=== PATIENT | female | born 1965 | race Caucasian/White ===

== ENCOUNTER 2016-12-17 16:14 | Emergency (ER) | payer MEDICARE, OTHER ==
[~2016-12-17] VITALS: Ht 157.5 cm; Wt 72.7 kg
[2016-12-17 16:21] VITALS: BP 147/96; PULSE 88; RESP 16; O2SAT 99
--- NOTE | 2016-12-17 17:38 | DRSVH ---
PROCEDURE: X-RAY CHEST ONE VIEW, PORTABLE ([id number]) INDICATIONS: CHEST PAIN TECHNIQUE: One view of the chest was acquired. COMPARISON: None. FINDINGS: Surgical changes and devices: None. Lungs and pleura: No pleural effusions or pneumothorax. Lungs are clear. Mediastinum: Mediastinal contours appear normal. Heart size is normal. Bones and chest wall: No suspicious bony lesions. Overlying soft tissues appear unremarkable. IMPRESSION: 1. No acute cardiopulmonary disease. Dictated by: Fausto Buck M.D. on 12/17/2016 at 17:36 Approved by: Fausto Buck M.D. on 12/17/2016 at 17:36
--- NOTE | 2016-12-17 17:51 | ED.REPORT ---
HPI-General Illness Date of Service Dec 17, 2016 ED Provider: Rosana Patterson MD The pt is a 51 y/o female w/ a hx of fibromyalgia presenting to the ED complaining of lower extremity bruising onset 5 days ago. She reports the bruising gradually going up her legs. She also has intermittent stabbing L sided chest pain which she describes as "stabbing through her front and back at the same time". The pt also has a headache, epigastric abd tenderness, and a small amount of hematuria. She has taken half a Vicodin and 3 Advil for the pain. Denies any blood in her stool or vomit. The pt also denies any alcohol consumption, unexplained blackouts, or memory loss. Her PCP is a Dr. Pace in [place]. [phone] Nursing Notes Stated Complaint: CHEST BRUISING AND PAIN Chief Complaint: Dysrhythmia/Cardiac Nursing Notes Reviewed: Yes Allergies: Coded Allergies: ceftriaxone (Verified Allergy, Severe, VOMITING, PASSES OUT, VERY ILL, 12/17) Penicillins (Verified Allergy, Mild, RASH, 12/17/16) duloxetine (Verified Allergy, Mild, VOMITING, 12/17/16) General Time Seen by MD: 17:26 Chief Complaint Other (Lower extremity bruising ) Hx Obtained From: Patient Arrived By: Walk-in Sudden in Onset?: Yes Onset Occurred: 5 days ago Symptom Duration: Since onset Recent Healthcare: No recent doctor visit, No recent hospitalization Similar Sx Previous: No Past Medical History Past Medical History Fibromyalgia Past Surgical History Hysterectomy Tonsillectomy R knee surgery Smoking History Never Smoker Social History Alcohol Use: Denies alcohol use Ambulatory Status Independent Review of Systems Denies blood in stool or vomit, memory loss, or unexplained blackouts Full Review of Systems Cardiovascular: Reports: Chest pain GI: Reports: Abdominal pain (Epigastric) Female: Reports: Hematuria Skin: Reports Bruising (Lower extremities ) Neurologic: Reports: Headache Complete sys rev & neg: except as marked. Physical Exam Vital Signs Vital Signs Date Time Temp Pulse Resp B/P Pulse Ox O2 Delivery O2 Flow Rate FiO2 12/17/16 19:14 36.8 83 16 133/76 100 Room Air 12/17/16 16:21 36.1 88 16 147/96 99 Room Air Initial VS: Reviewed General/Constitutional: Awake, Alert Head / Eyes: Atraumatic, Normocephalic ENT: Atraumatic, Airway patent Neck: Atraumatic, Supple, Full range of motion Respiratory / Chest: Atraumatic, Breath sounds NL, Breath sounds = bilat, No respiratory distress, No rales, No rhonchi, No wheezing Cardiovascular: Heart rate NL, Regular rhythm, Heart sounds NL Abdomen: Atraumatic, Soft Tenderness/Guarding/Rebound: Positive: Tender epigastric Back: Atraumatic, Full range of motion Skin: Atraumatic, Color NL, No rash, Warm, Dry Rash / Lesion Notes: multiple bruises over both legs, various sizes and stages of healing. No obvious abuse or trauma patern. No skin abrasions associated with the bruising. Neurologic: Oriented X3, Speech NL Psychiatric: Affect NL, Mood NL Interpretation & Diagnostics Lab Results Interpretation Result Diagram: 12/17/16172912/17/16 173 Test 12/17/16 15:30 12/17/16 17:30 Hold Urine Received (Received) White Blood Count 4.6th/mm3 (3.8-10.1) Red Blood Count 4.60mil/mm3 (3.90-5.20) Hemoglobin 13.4g/dL (12.0-15.6) Hematocrit 40.4% (35.0-46.0) Mean Corpuscular Volume 87.8fL (81-100) Mean Corpuscular Hemoglobin 29.1pg (27.0-35.0) Mean Corpuscular Hemoglobin Concent 33.2% (32.0-37.0) Red Cell Distribution Width 12.8% (12.3-15.4) Platelet Count 224bil/L (150-400) Neutrophils (%) (Auto) 56.4% (40-74) Lymphocytes (%) (Auto) 35.1% (14-46) Monocytes (%) (Auto) 6.8% (4-12) Eosinophils (%) (Auto) 1.3% (0-5) Basophils (%) (Auto) 0.2% (0-3) Prothrombin Time 10.2sec (8.1-12.5) Prothromb Time International Ratio 0.95ratio Activated Partial Thromboplast Time 29.0sec (22.8-33.0) Sodium Level 144mEq/L (134-144) Potassium Level 4.1mEq/L (3.5-5.2) Chloride Level 104mEq/L (97-108) Carbon Dioxide Level 27mmol/L (18-29) Blood Urea Nitrogen 13mg/dL (6-24) Creatinine 1.01mg/dL (0.57-1.00) Estimat Glomerular Filtration Rate 82mL/min (>59) Glucose Level 97mg/dL (60-99) Calcium Level 9.8mg/dL (8.5-10.1) Magnesium Level 2.1mg/dL (1.6-2.6) Total Bilirubin 0.2mg/dL (0.0-1.2) Aspartate Amino Transf (AST/SGOT) 15U/L (0-50) Alanine Aminotransferase (ALT/SGPT) 13U/L (0-32) Alkaline Phosphatase 84U/L (25-150) Troponin T < 0.010ug/L (0.0-0.011) Total Protein 6.9g/dL (6.4-8.4) Albumin 4.3g/dL (3.4-5.0) Hold Soto Top Tube Received (Received) ECG Interpretation ECG Interpretation: Rate 81 Normal sinus rhythm No ischemic Time: 16:54 Interpreted by: Radio Performer X-Ray Chest Interpretation Chest Xray Interpretation: IMPRESSION: 1. No acute cardiopulmonary disease. Dictated by: Fausto Buck M.D. on 12/17/2016 at 17:36 Approved by: Fausto Buck M.D. on 12/17/2016 at 17:36 View: Portable, 1 view Interpretation / Wet Read by: Interpret - Radiologist Re-Eval/Medical Decision Source of Hx: Old records Time of Eval: 19:41 Re-Evaluation/Progress Note: Pt rechecked. Informed pt of plan for treatment. Pt understands and agrees with plan for treatment. F/U instructions and RTER warnings given. All questions addressed. Counseled Regarding: Diagnosis, Need for follow-up, When/why to return to ED Discharge & Departure Primary Impression: Bruising Ruled Out: Acute leukemia, Thrombocytopenia, Anemia, Liver failure, Renal failure, Coagulopathy Disposition: Home Discharge Condition All VS Reviewed: Yes Condition: Stable Additional Instructions: Thank you for entrusting us with your care in the ED today. If the bruising continues you may need to see a infant and toddler teacher. Today, I did not find any specific explanation for the bruising your noticing. Specifically there was no evidence for acute leukemia blood clotting disorders low platelets liver failure kidney failure or any of the other frightening diagnoses can cause unexplained bruising. Try using Pepcid Complete to help reduce your stomach acid levels. Don't take any aspirin or ibuprofen because they can affect your clotting factors. I will give you your lab results for you to give to your PCP when you get back home You will be fine flying to [place]. You can take daily pictures to help record how the bruising progresses. Use the vicodin, sparingly as needed. I hope you feel better. [employer] Attestation Portions of this note were transcribed by Jonh Wilson. I, Dr. Patterson personally performed the history, physical exam and medical decision-making; I reviewed and confirmed the accuracy of the information in the transcribed note. Signed by : Trevin Oquendo, 12/17/16 and 1942. Rosana Patterson MD Dec 17, 2016 17:51 Jonh Wilson Dec 17, 2016 19:14
[2016-12-17 18:35] LABS: BASOPHILS % (AUTO) 0.2 % (0-3); EOSINOPHILS % (AUTO) 1.3 % (0-5); INR 0.95 ratio; MONOCYTES % (AUTO) 6.8 % (4-12); Magnesium 2.1 mg/dL (1.6-2.6); Mean Corpuscular Hemoglobin 29.1 pg (27.0-35.0); Mean Corpuscular Volume 87.8 fL (81-100); NEUTROPHILS % (AUTO) 56.4 % (40-74); Platelet Count 224 bil/L (150-400)
[2016-12-17 18:37] LABS: TROPONIN T < 0.010 ug/L (0.0-0.011)
[2016-12-17 19:14] VITALS: BP 133/76; PULSE 83; RESP 16; O2SAT 100
== END 2016-12-17 19:30 | disposition home or self-care (01) ==
LOC: SED 16:14
DX: S80.11XA Contusion of right lower leg, initial encounter (principal); S80.12XA Contusion of left lower leg, initial encounter; X58.XXXA Exposure to other specified factors, initial encounter; Y93.9 Activity, unspecified; Y92.9 Unspecified place or not applicable; Y99.9 Unspecified external cause status; R07.89 Other chest pain; M79.7 Fibromyalgia; Z90.710 Acquired absence of both cervix and uterus; Z88.0 Allergy status to penicillin; Z88.1 Allergy status to other antibiotic agents; Z88.8 Allergy status to other drugs, medicaments and biological substances